=== PATIENT | male | born 1950 | race Caucasian/White ===

== ENCOUNTER → 2021-05-22 11:31 | Outpatient (CLI) | payer MEDICARE, BC, SELFPAY ==
--- NOTE | 2021-05-22 | DI.RAD.S_ITS ---
PROCEDURE: XR DEXA AXIAL SKELETON INDICATIONS: Other specified disorders of bone density and stru COMPARISON: None. FINDINGS: This blank DEXA report has been sent in error by the PACS system. The correct and complete report will be forthcoming in 1-2 days. Thank you for your patience and understanding. Dictated by: Bri Ruffin MD, PhD on 05/22/2021 at 16:52 Approved by: Bri Ruffin MD, PhD on 05/22/2021 at 16:53
== END ==
PROVIDERS: Referring Provider Internal Medicine; Visit Provider Internal Medicine
DX: M85.851 Other specified disorders of bone density and structure, right thigh
CPT/HCPCS: 77080

== ENCOUNTER 2022-04-21 02:31 | Emergency (ER) | payer MEDICARE, BC, SELFPAY ==
[2022-04-21] VITALS (9 sets, daily range): BP systolic 151–210; BP diastolic 70–101; PULSE 52–79; RESP 14–18; TEMP 36.4; O2SAT 94–99; BMI 25.1
--- NOTE | 2022-04-21 02:48 | DI.RAD.S_ITS ---
PROCEDURE: XR ACUTE ABDOMEN SERIES INDICATIONS: Abdominal pain TECHNIQUE: One view chest and two views of the abdomen were acquired. COMPARISON: None. FINDINGS: Surgical changes and devices: None. Chest: Lungs are clear. Heart size is normal. No pleural effusions. No pneumoperitoneum. Abdomen: Moderate degree of fecal loading. Bowel gas pattern is otherwise nonspecific. No gross pneumoperitoneum on upright images. Bones: No suspicious bony lesions. IMPRESSION: Moderate degree of fecal loading with nonspecific overall bowel gas pattern. No acute radiographic abnormality in the chest. CT findings are separately dictated, describing a left renal pelvis calcification corresponding to an obstructing calculus. Agree with preliminary report. Dictated by: Chago Alonzo M.D. on 04/21/2022 at 8:15 Approved by: Chago Alonzo M.D. on 04/21/2022 at 8:16
[2022-04-21 02:52] LABS: Add Manual Diff / Slide Review NO; Basophils Absolute Auto 100 /uL (0-100); Basophils Percent Auto 0.5 % (0-2); Eosinophils Absolute Auto 100 /uL (0-450); Eosinophils Percent Auto 0.4 % (2-4); Lymphocytes Absolute Auto 1000 /uL (1100-4500); Mean Corpuscular HGB Conc 34.1 % (30-36); Mean Corpuscular Hemoglobin 29.2 PG (26-34); Mean Corpuscular Volume 85.4 fL (80-100); Monocytes Absolute Auto 700 /uL (0-900); Monocytes Percent Auto 5.6 % (3-14); Neutrophils Absolute Auto 11000 /uL (1500-7000); Neutrophils Percent Auto 85.5 % (50-75); Platelet Count 176 X10^3/uL (150-400); Red Cell Distribution Width 13.4 % (11.6-14.8); White Blood Cell Count 12.9 X10^3/uL (4.5-11.0)
[2022-04-21] MEDS: ONDANSETRON 4 MG/2 ML INJ IV (02:58)
[2022-04-21] MEDS: SODIUM CHLORIDE 0.9% 1,000 ML 1000 ML IV (02:58)
[2022-04-21] MEDS: HYDROMORPHONE 0.5 MG INJ IV ×3 (02:58→07:33)
--- NOTE | 2022-04-21 03:05 | DI.CT.S_ITS ---
PROCEDURE: CT ABDOMEN PELVIS W CON INDICATIONS: severe ABD pain, N/V, no BM, no flatus, recent lithotripsy TECHNIQUE: After the administration of intravenous contrast, axial sections acquired from the lung bases to the pubic symphysis. Coronal and sagittal reformats were performed. For radiation dose reduction, the following was used: automated exposure control, adjustment of mA and/or kV according to patient size. COMPARISON: None. FINDINGS: Image quality: Excellent. Lung bases: Scattered scarring/atelectasis. Left lower lobe pulmonary nodule with calcification. Follow-up is optional. Heart: No significant findings. ABDOMEN: Liver: Unremarkable. Gallbladder: Unremarkable Biliary ducts: Unremarkable. Pancreas: Unremarkable. Spleen: Subcentimeter lesions are too small to characterize. Adrenal Glands: Unremarkable. Kidneys and Ureters: Obstructing series of stones measuring 1.4 centimeters in aggregate on coronal image 3/36, and 0.6 x 0.8 centimeters in axial dimensions (83) in the left distal ureter, with moderate upstream hydronephrosis. Bilateral non-obstructing renal calculi are also present, measuring up to 1.2 x 0.6 centimeters by 0.3 centimeters on the left. Left delayed nephrogram. Stomach and Bowel: Distal esophageal wall thickening NG junction hyperemia. Suspected mild proctitis and distal colitis no bowel obstruction. Peritoneum: There is trace free fluid. Ventral Wall: Rectus diastasis. Abdominal Nodes: No pathologic adenopathy by size criteria Vessels: No abdominal aortic aneurysm. PELVIS: Pelvic Organs: Prostatectomy. Bladder: Mildly thick-walled Pelvic Nodes: No enlarged lymph nodes. Miscellaneous: Fat containing inguinal hernias. Bones: No suspicious or acute osseous abnormality. IMPRESSION: Obstructing series of stones at the left distal ureter with dimensions above, causing upstream moderate hydronephrosis and left delayed nephrogram. Nonobstructing intrarenal stones are also present. Possible mild distal colitis and proctitis. Distal esophageal wall thickening in GE junction hyperemia are indeterminate on CT, most commonly due to esophagitis. Agree with preliminary report with the above clarification regarding the stone size. Dictated by: Chago Alonzo M.D. on 04/21/2022 at 8:00 Approved by: Chago Alonzo M.D. on 04/21/2022 at 8:09
[2022-04-21 03:06] LABS: Alanine Aminotransferase 15 IU/L (<50); Albumin 4.6 g/dL (3.5-5.0); Albumin Globulin Ratio 1.2 (1.0-2.8); Alkaline Phosphatase 116 U/L (38-126); Aspartate Aminotransferase 26 IU/L (17-59); Bilirubin Total 0.8 mg/dL (0.2-1.3); Blood Urea Nitrogen 20 mg/dL (9-20); Calcium 10.1 mg/dL (8.4-10.2); Carbon Dioxide 29 mmol/L (22-32); Chloride 96 mmol/L (98-107); Estimated Glomerular Filt Rate 43 mL/min (>60); Globulin 3.7 g/dL (1.7-4.1); Glucose 142 mg/dL (80-110); HEMOLYSIS < 15 (0-50); Sodium 135 mmol/L (137-145); Total Protein 8.3 g/dL (6.3-8.2)
[2022-04-21 03:07] LABS: Lactate (Lactic Acid) 1.4 mmol/L (0.7-2.1)
--- NOTE | 2022-04-21 03:08 | ED.ABDPAIN ---
HPI - Abdominal Pain <Marlon Lane DO - Last Filed: 04/23/22 04:38> General Chief Complaint: Abdominal Pain Stated Complaint: abd pain, throwing up Time Seen by Provider: 04/21/22 02:35 Source: patient Mode of arrival: Ambulatory History of Present Illness HPI narrative: 71-year-old male nonsmoker with history of kidney stones presents with his in the chief complaint of severe if not worsening left-sided abdominal pain over the past 24 hours or so. He was seen and evaluated in [place] on and had a lithotripsy for a 1.1 cm kidney stone and reports that went quite well. He has been taking oxycodone as needed for pain and states that over the past day or 2 he has been having increasing pain that started on his left flank but now seems to be his general abdomen. He is had poor appetite and a few episodes of nausea and vomiting. He states that he is had decreasing bowel movements and now fears he is no longer even passing gas. He did attempt to enemas and Dulcolax prior to presenting here tonight. He states his pain is worse when he moves and improves with rest. He is had no fever or chills. Related Data Allergies Allergy/AdvReac Type Severity Reaction Status Date / Time No Known Drug Allergies Allergy Verified 04/21/22 02:50 Review of Systems <DO Cynthia Vargas Last Filed: 04/23/22 04:38> Review of Systems Narrative: GENERAL: Denies chills, fatigue, malaise, fever, sweats. HEENT: Denies sinus pain, ear pain, sore throat, difficulty swallowing, dizziness. RESPIRATORY: Denies dyspnea, cough, wheezing, hemoptysis, sputum. CARDIOVASCULAR: Denies chest pain, palpitations, orthopnea, edema, GASTROINTESTINAL: See HPI : Denies dysuria, frequency, incontinence, hematuria, urinary retention. MUSCULOSKELETAL: denies weakness, joint pain, or bony pain SKIN: Denies rash, skin lesions, or other NEUROLOGIC: Denies weakness, headache, numbness, change in speech, confusion, seizures, incoordination. PSYCHIATRIC: No concerning psychosocial issues. 12 point review of systems is negative except for those stated above Patient History <DO Cynthia Vargas Last Filed: 04/23/22 04:38> Social History Smoking Status: Never smoker Smoking Status: Never smoker alcohol intake frequency: holidays/special occasions only Substance Use Type: does not use Exam <Marlon Lane DO - Last Filed: 04/23/22 04:38> Narrative Exam Narrative: GENERAL: [71] year old patient appears stated age. Well-developed patient, in mild distress. Obviously uncomfortable HEAD: Atraumatic. Normocephalic. EYES: Pupils equal round and reactive. Extraocular motions intact. No scleral icterus. No injection or drainage. ENT: Nose without bleeding, purulent drainage. Throat without erythema, tonsillar hypertrophy or exudate. Airway patent. NECK: Trachea midline. Non tender CARDIOVASCULAR: Regular rate and rhythm without murmurs, gallops, or rubs. RESPIRATORY: Clear to auscultation. Breath sounds equal bilaterally. No wheezes, rales, or rhonchi. GASTROINTESTINAL: Abdomen soft, mild distention, tender to palpate throughout, decreased bowel sounds EXTREMITIES: No edema or joint tenderness. BACK: Nontender without deformity or crepitance. No flank tenderness. NEURO: AOx3. SKIN: No rash or erythema of visible areas Initial Vital Signs Initial Vital Signs: Vital Signs Pulse Rate 58 L 04/21/22 02:37 Blood Pressure 196/91 H 04/21/22 02:37 Pulse Oximetry 99 04/21/22 02:37 <John Mosquera DO - Last Filed: 04/21/22 07:41> Initial Vital Signs Initial Vital Signs: Vital Signs Pulse Rate 58 L 04/21/22 02:37 Blood Pressure 196/91 H 04/21/22 02:37 Pulse Oximetry 99 04/21/22 02:37 Course <Marlon Lane DO - Last Filed: 04/23/22 04:38> Orders Ordered: Discontinued Medications Hydromorphone HCl (Hydromorphone 0.5 Mg Inj) 0.5 mg IV NOW ONE Stop: 04/21/22 02:47 Last Admin: 04/21/22 02:58 Dose: 0.5 mg Documented By: Elana Hydromorphone HCl (Hydromorphone 0.5 Mg Inj) 0.5 mg IV NOW ONE Stop: 04/21/22 04:10 Last Admin: 04/21/22 04:11 Dose: 0.5 mg Documented By: ARABELLA Hydromorphone HCl (Hydromorphone 0.5 Mg Inj) 0.5 mg IV NOW ONE Stop: 04/21/22 07:19 Last Admin: 04/21/22 07:33 Dose: 0.5 mg Documented By: JOVON Sodium Chloride (Normal Saline 0.9%) 1,000 mls @ 1,000 mls/hr IV BOLUS ONE Stop: 04/21/22 03:45 Last Infusion: 04/21/22 04:13 Dose: 0 mls/hr Documented By: Admin: 04/21/22 02:58 Dose: 1,000 mls/hr Documented By: ARABELLA Ketorolac Tromethamine (Ketorolac 30 Mg/Ml Vial) 15 mg IV NOW ONE Stop: 04/21/22 05:31 Last Admin: 04/21/22 05:35 Dose: 15 mg Documented By: ARABELLA Ondansetron HCl (Ondansetron 4 Mg/2 Ml Inj) 4 mg IV NOW ONE Stop: 04/21/22 02:47 Last Admin: 04/21/22 02:58 Dose: 4 mg Documented By: ARABELLA Reevaluation(s) Reevaluation #1: minimal change after Dilaudid Reevaluation #2: minimal change after 2nd dilaudid Reevaluation #3: Toradol ordered Consultations Consultation #1: discussed with [place] [facility] vice president media relations for [facility]. No indication for transfer given our access to local urology [facility], requests patient stay here for stent Consultation #2: call to Dr. Chanel. Patient will need transfer to [place] given high likelihood of stent failure given recent failed lithotripsy and we do not have IR or ability to perform perc Consultation #3: call to [place] to initiate transfer. Dr. Stone is happy to accept patient in transfer onto his service and requests our records including imaging on a disc accompany patient Vital Signs Vital signs: Vital Signs - 8 hr 04/21/22 02:51 04/21/22 02:37 04/21/22 02:37 Temperature 97.5 F L Pulse Rate 62 58 L Respiratory Rate 14 Blood Pressure 196/91 H 196/91 H Pulse Oximetry 99 99 Oxygen Delivery Method Room Air 04/21/22 03:02 04/21/22 03:02 04/21/22 03:30 Temperature Pulse Rate 56 L 79 Respiratory Rate Blood Pressure 194/81 H Pulse Oximetry 99 94 Oxygen Delivery Method 04/21/22 03:31 04/21/22 03:31 04/21/22 04:00 Temperature Pulse Rate 70 61 Respiratory Rate Blood Pressure 210/98 H Pulse Oximetry 94 97 Oxygen Delivery Method 04/21/22 04:30 04/21/22 05:00 04/21/22 07:27 Temperature Pulse Rate 53 L 61 52 L Respiratory Rate 16 18 Blood Pressure 197/101 H 151/70 H Pulse Oximetry 98 98 96 Oxygen Delivery Method Room Air Room Air <John Mosquera DO - Last Filed: 04/21/22 07:41> Orders Ordered: Discontinued Medications Hydromorphone HCl (Hydromorphone 0.5 Mg Inj) 0.5 mg IV NOW ONE Stop: 04/21/22 02:47 Last Admin: 04/21/22 02:58 Dose: 0.5 mg Documented By: ARABELLA Hydromorphone HCl (Hydromorphone 0.5 Mg Inj) 0.5 mg IV NOW ONE Stop: 04/21/22 04:10 Last Admin: 04/21/22 04:11 Dose: 0.5 mg Documented By: ARABELLA Hydromorphone HCl (Hydromorphone 0.5 Mg Inj) 0.5 mg IV NOW ONE Stop: 04/21/22 07:19 Last Admin: 04/21/22 07:33 Dose: 0.5 mg Documented By: JOVON Sodium Chloride (Normal Saline 0.9%) 1,000 mls @ 1,000 mls/hr IV BOLUS ONE Stop: 04/21/22 03:45 Last Infusion: 04/21/22 04:13 Dose: 0 mls/hr Documented By: Admin: 04/21/22 02:58 Dose: 1,000 mls/hr Documented By: ARABELLA Ketorolac Tromethamine (Ketorolac 30 Mg/Ml Vial) 15 mg IV NOW ONE Stop: 04/21/22 05:31 Last Admin: 04/21/22 05:35 Dose: 15 mg Documented By: ARABELLA Ondansetron HCl (Ondansetron 4 Mg/2 Ml Inj) 4 mg IV NOW ONE Stop: 04/21/22 02:47 Last Admin: 04/21/22 02:58 Dose: 4 mg Documented By: ARABELLA Vital Signs Vital signs: Vital Signs - 8 hr 04/21/22 02:51 04/21/22 02:37 04/21/22 02:37 Temperature 97.5 F L Pulse Rate 62 58 L Respiratory Rate 14 Blood Pressure 196/91 H 196/91 H Pulse Oximetry 99 99 Oxygen Delivery Method Room Air 04/21/22 03:02 04/21/22 03:02 04/21/22 03:30 Temperature Pulse Rate 56 L 79 Respiratory Rate Blood Pressure 194/81 H Pulse Oximetry 99 94 Oxygen Delivery Method 04/21/22 03:31 04/21/22 03:31 04/21/22 04:00 Temperature Pulse Rate 70 61 Respiratory Rate Blood Pressure 210/98 H Pulse Oximetry 94 97 Oxygen Delivery Method 04/21/22 04:30 04/21/22 05:00 04/21/22 07:27 Temperature Pulse Rate 53 L 61 52 L Respiratory Rate 16 18 Blood Pressure 197/101 H 151/70 H Pulse Oximetry 98 98 96 Oxygen Delivery Method Room Air Room Air MDM - Abdominal Pain <Marlon Lane, DO - Last Filed: 04/23/22 04:38> Lab Data Result diagrams: 04/21/22 02:40 04/21/22 02:40 Labs: Lab Results 04/21/22 04/21/22 04/21/22 Range/Units 02:40 02:40 02:40 WBC 12.9 H (4.5-11.0) X10^3/uL RBC 5.50 (4.5-5.9) X10^6/uL Hgb 16.0 (13.5-17.5) g/dL Hct 47.0 (41-53) % MCV 85.4 (80-100) fL MCH 29.2 (26-34) PG MCHC 34.1 (30-36) % RDW 13.4 (11.6-14.8) % Plt Count 176 (150-400) X10^3/uL Neut % (Auto) 85.5 H (50-75) % Lymph % (Auto) 8.0 L (25-40) % [place] % (Auto) 5.6 (3-14) % Eos % (Auto) 0.4 L (2-4) % Baso % (Auto) 0.5 (0-2) % Neut # (Auto) 60426 H (3415-7955) /uL Lymph # (Auto) 1000 L (9552-5736) /uL [place] # (Auto) 700 (0-900) /uL Eos # (Auto) 100 (0-450) /uL Baso # (Auto) 100 (0-100) /uL Sodium 135 L (137-145) mmol/L Potassium 4.0 (3.4-5.1) mmol/L Chloride 96 L (98-107) mmol/L Carbon Dioxide 29 (22-32) mmol/L BUN 20 (9-20) mg/dL Creatinine 1.67 H (0.66-1.25) mg/dL Estimated GFR 43 L (>60) mL/min BUN/Creatinine Ratio 12.0 (6-22) Glucose 142 H (80-110) mg/dL Lactate 1.4 (0.7-2.1) mmol/L Calcium 10.1 (8.4-10.2) mg/dL Total Bilirubin 0.8 (0.2-1.3) mg/dL AST 26 (17-59) IU/L ALT 15 (<50) IU/L Alkaline Phosphatase 116 (38-126) U/L Total Protein 8.3 H (6.3-8.2) g/dL Albumin 4.6 (3.5-5.0) g/dL Globulin 3.7 (1.7-4.1) g/dL Albumin/Globulin Ratio 1.2 (1.0-2.8) Urine RBC (0-5/HPF) Urine WBC (0-5/HPF) Ur Squamous Epith Cells (0-5/HPF) Amorphous Sediment Urine Bacteria (None) Ur Culture Indicated? SARS-CoV-2 (PCR) (Negative) 04/21/22 04/21/22 Range/Units 02:45 05:30 WBC (4.5-11.0) X10^3/uL RBC (4.5-5.9) X10^6/uL Hgb (13.5-17.5) g/dL Hct (41-53) % MCV (80-100) fL MCH (26-34) PG MCHC (30-36) % RDW (11.6-14.8) % Plt Count (150-400) X10^3/uL Neut % (Auto) (50-75) % Lymph % (Auto) (25-40) % [place] % (Auto) (3-14) % Eos % (Auto) (2-4) % Baso % (Auto) (0-2) % Neut # (Auto) (7699-1789) /uL Lymph # (Auto) (4414-4112) /uL [place] # (Auto) (0-900) /uL Eos # (Auto) (0-450) /uL Baso # (Auto) (0-100) /uL Sodium (137-145) mmol/L Potassium (3.4-5.1) mmol/L Chloride (98-107) mmol/L Carbon Dioxide (22-32) mmol/L BUN (9-20) mg/dL Creatinine (0.66-1.25) mg/dL Estimated GFR (>60) mL/min BUN/Creatinine Ratio (6-22) Glucose (80-110) mg/dL Lactate (0.7-2.1) mmol/L Calcium (8.4-10.2) mg/dL Total Bilirubin (0.2-1.3) mg/dL AST (17-59) IU/L ALT (<50) IU/L Alkaline Phosphatase (38-126) U/L Total Protein (6.3-8.2) g/dL Albumin (3.5-5.0) g/dL Globulin (1.7-4.1) g/dL Albumin/Globulin Ratio (1.0-2.8) Urine RBC 0-1/hpf (0-5/HPF) Urine WBC 0-1/hpf (0-5/HPF) Ur Squamous Epith Cells 0-1 /hpf (0-5/HPF) Amorphous Sediment 3+ Urine Bacteria None seen (None) Ur Culture Indicated? Cult not indicated SARS-CoV-2 (PCR) Negative (Negative) Point of care testing: Urine Dip Bedside Urine Glucose Negative Bedside Urine Bilirubin - Negative Bedside Urine Ketone +/- 5 Urine Specific [place] 1.010 Bedside Urine Occult Blood + Bedside Urine pH 7.5 Bedside Urine Protein - Negative Bedside Urine Urobilinogen - Negative Bedside Urine Nitrite - Negative Bedside Urine Leukocytes - Negative Esterase <John Mosquera DO - Last Filed: 04/21/22 07:41> Lab Data Labs: Lab Results 04/21/22 04/21/22 04/21/22 Range/Units 02:40 02:40 02:40 WBC 12.9 H (4.5-11.0) X10^3/uL RBC 5.50 (4.5-5.9) X10^6/uL Hgb 16.0 (13.5-17.5) g/dL Hct 47.0 (41-53) % MCV 85.4 (80-100) fL MCH 29.2 (26-34) PG MCHC 34.1 (30-36) % RDW 13.4 (11.6-14.8) % Plt Count 176 (150-400) X10^3/uL Neut % (Auto) 85.5 H (50-75) % Lymph % (Auto) 8.0 L (25-40) % [place] % (Auto) 5.6 (3-14) % Eos % (Auto) 0.4 L (2-4) % Baso % (Auto) 0.5 (0-2) % Neut # (Auto) 11100 H (8984-7927) /uL Lymph # (Auto) 1000 L (8050-0093) /uL [place] # (Auto) 700 (0-900) /uL Eos # (Auto) 100 (0-450) /uL Baso # (Auto) 100 (0-100) /uL Sodium 135 L (137-145) mmol/L Potassium 4.0 (3.4-5.1) mmol/L Chloride 96 L (98-107) mmol/L Carbon Dioxide 29 (22-32) mmol/L BUN 20 (9-20) mg/dL Creatinine 1.67 H (0.66-1.25) mg/dL Estimated GFR 43 L (>60) mL/min BUN/Creatinine Ratio 12.0 (6-22) Glucose 142 H (80-110) mg/dL Lactate 1.4 (0.7-2.1) mmol/L Calcium 10.1 (8.4-10.2) mg/dL Total Bilirubin 0.8 (0.2-1.3) mg/dL AST 26 (17-59) IU/L ALT 15 (<50) IU/L Alkaline Phosphatase 116 (38-126) U/L Total Protein 8.3 H (6.3-8.2) g/dL Albumin 4.6 (3.5-5.0) g/dL Globulin 3.7 (1.7-4.1) g/dL Albumin/Globulin Ratio 1.2 (1.0-2.8) Urine RBC (0-5/HPF) Urine WBC (0-5/HPF) Ur Squamous Epith Cells (0-5/HPF) Amorphous Sediment Urine Bacteria (None) Ur Culture Indicated? SARS-CoV-2 (PCR) (Negative) 04/21/22 04/21/22 Range/Units 02:45 05:30 WBC (4.5-11.0) X10^3/uL RBC (4.5-5.9) X10^6/uL Hgb (13.5-17.5) g/dL Hct (41-53) % MCV (80-100) fL MCH (26-34) PG MCHC (30-36) % RDW (11.6-14.8) % Plt Count (150-400) X10^3/uL Neut % (Auto) (50-75) % Lymph % (Auto) (25-40) % [place] % (Auto) (3-14) % Eos % (Auto) (2-4) % Baso % (Auto) (0-2) % Neut # (Auto) (9912-4772) /uL Lymph # (Auto) (6388-2245) /uL [place] # (Auto) (0-900) /uL Eos # (Auto) (0-450) /uL Baso # (Auto) (0-100) /uL Sodium (137-145) mmol/L Potassium (3.4-5.1) mmol/L Chloride (98-107) mmol/L Carbon Dioxide (22-32) mmol/L BUN (9-20) mg/dL Creatinine (0.66-1.25) mg/dL Estimated GFR (>60) mL/min BUN/Creatinine Ratio (6-22) Glucose (80-110) mg/dL Lactate (0.7-2.1) mmol/L Calcium (8.4-10.2) mg/dL Total Bilirubin (0.2-1.3) mg/dL AST (17-59) IU/L ALT (<50) IU/L Alkaline Phosphatase (38-126) U/L Total Protein (6.3-8.2) g/dL Albumin (3.5-5.0) g/dL Globulin (1.7-4.1) g/dL Albumin/Globulin Ratio (1.0-2.8) Urine RBC 0-1/hpf (0-5/HPF) Urine WBC 0-1/hpf (0-5/HPF) Ur Squamous Epith Cells 0-1 /hpf (0-5/HPF) Amorphous Sediment 3+ Urine Bacteria None seen (None) Ur Culture Indicated? Cult not indicated SARS-CoV-2 (PCR) Negative (Negative) Point of care testing: Urine Dip Bedside Urine Glucose Negative Bedside Urine Bilirubin - Negative Bedside Urine Ketone +/- 5 Urine Specific [place] 1.010 Bedside Urine Occult Blood + Bedside Urine pH 7.5 Bedside Urine Protein - Negative Bedside Urine Urobilinogen - Negative Bedside Urine Nitrite - Negative Bedside Urine Leukocytes - Negative Esterase MDM Narrative Medical decision making narrative: Dr mosquera: Patient was not formally turned over to myself however I did review the preliminary report of the CT abdomen and pelvis and noticed that there was an incidental pulmonary nodule noted. I did inform the patient of this. It was added to his discharge diagnoses. Informed him that it is a finding that is incidental and does need followed up with his primary doctor for further evaluation. His is at bedside for this. They both expressed understanding and agreement. Critical Care Time <Marlon Lane, DO - Last Filed: 04/23/22 04:38> Critical Care Time Critical Care Time: Yes Total Critical Care Time: 30 Attestation: The high probability of a clinically significant, sudden or life threatening deterioration of the [] system(s) required my full and direct attention, intervention and personal management. The aggregate critical care time was [30] minutes. This time is in addition to time spent performing reported procedures but includes the following: [x] Data Review and interpretation [x] Patient assessment and monitoring of vital signs [x] Documentation [x] Medication orders and management Discharge Plan Departure Patient Disposition: [facility] Clinical Impression: Acute unilateral obstructive uropathy, Acute kidney injury, Pulmonary nodule
[2022-04-21 03:14] LABS: COVID19 -Nasal RAPID Negative (Negative)
[2022-04-21] MEDS: KETOROLAC 30 MG/ML VIAL 15 MG IV (05:35)
[2022-04-21 06:05] LABS: Amorphous Sediment Urine 3+; RBC Urine 0-1/HPF (0-5/HPF); Squamous Epithelial Cell Urine 0-1 /HPF (0-5/HPF); WBC Urine 0-1/HPF (0-5/HPF)
[2022-04-21 06:06] LABS: Bacteria Urine None Seen; Culture Indicated Urine Cult Not Indicated
--- NOTE | 2022-04-21 07:41 | PC.NURSE ---
Ritesh ENGLISH gave transfer report to [facility]. Report given to [facility]. Pt medicated for pain per order prior to transfer. No IV meds running on transfer. Pt DC'd with [facility].
== END 2022-04-21 07:42 | disposition short-term general hospital (02) ==
PROVIDERS: Emergency Provider Emergency Medicine
DX: N13.9 Obstructive and reflux uropathy, unspecified (principal); N17.9 Acute kidney failure, unspecified; R91.1 Solitary pulmonary nodule; R11.2 Nausea with vomiting, unspecified; Z20.822 Contact with and (suspected) exposure to COVID-19
CPT/HCPCS: 36415; 74022; 74177; 80053; 81003; 81015; 83605; 85025; 87635; 96361; 96374; 96375; 96376; 99284; C9803; J1170; J1885; J2405; Q9967

== ENCOUNTER → 2023-02-09 09:47 | Outpatient (CLI) | payer MEDICARE, BC, SELFPAY ==
--- NOTE | 2023-02-09 | DI.CT.S_ITS ---
PROCEDURE: CT CHEST WO CON INDICATIONS: Solitary pulmonary nodule TECHNIQUE: Noncontrast 5 mm thick sections acquired from the pulmonary apices to the posterior costophrenic angles. 1 mm lung window, 5 mm thick coronal and sagittal and 7 mm axial MIP reformats were then acquired. For radiation dose reduction, the following was used: automated exposure control, adjustment of mA and/or kV according to patient size. COMPARISON: [facility], CT, CT ABDOMEN PELVIS W CON, 04/21/2022, 3:22. FINDINGS: Lungs and pleura: Redemonstrated 7 mm subpleural medial left lower lobe nodule (3/199), partially calcified, previously 6-7 mm remeasured, not significantly changed in size. Possible increase in calcification compared to the prior exam versus differences in exam technique. No consolidation or pleural effusion. Mediastinum: No pericardial effusion. Thoracic aorta and central pulmonary arteries are normal in size. Esophagus is normal in caliber. Bones and chest wall: Multilevel degenerative change of the visualized spine. No axillary or supraclavicular adenopathy by size criteria. Abdomen: Visualized upper abdominal solid organs and bowel loops appear normal in the absence of contrast. IMPRESSION: No significant interval change in size of the previously demonstrated left lower lobe pulmonary nodule. Dictated by: Miky Calhoun M.D. on 02/09/2023 at 13:17 Approved by: Miky Calhoun M.D. on 02/09/2023 at 13:37
== END ==
PROVIDERS: PCP Physician Assistant; Referring Provider Physician Assistant; Visit Provider Physician Assistant
DX: R91.1 Solitary pulmonary nodule (principal)
CPT/HCPCS: 71250